=== PATIENT | male | born 1995 | race Caucasian/White ===

== ENCOUNTER 2020-09-26 12:28 | Emergency (ER) | payer SELFPAY ==
--- NOTE | 2020-09-26 13:37 | CR ---
INDICATION: Pain, fell, twisted leg. Technique: Two-views. FINDINGS: Nondisplaced linear oblique fracture of the mid fibula. No other fracture/acute bony abnormality. Operative changes are present about the knee suggesting ACL repair. Osteophyte extends off inferior patella. Dictated by Dino Tyson MD @ Sep 26 2020 1:35PM Signed by Dr. Dino Tyson @ Sep 26 2020 1:37PM
--- NOTE | 2020-09-26 13:39 | CR ---
INDICATION: Fell, twisted leg. TECHNIQUE: Three views. FINDINGS: Linear/oblique fracture of the mid fibula is present, but present on the edge of these ankle radiographs, it is better seen on the right tib-fib radiographs. No acute fracture of the distal fibula/tibia. Ankle mortise well maintained. Bone density and cortical contour in bony alignment are normal. Dictated by Dino Tyson MD @ Sep 26 2020 1:37PM Signed by Dr. Dino Tyson @ Sep 26 2020 1:38PM
--- NOTE | 2020-09-26 13:42 | CR ---
INDICATION: Fell, twisted leg TECHNIQUE: Two views COMPARISON: None FINDINGS: Bones: Alignment is normal. No fractures or bone lesions. Joint spaces: Unremarkable. Soft tissues: Unremarkable. IMPRESSION: Negative. Dictated by Dino Tyson MD @ Sep 26 2020 1:40PM Signed by Dr. Dino Tyson @ Sep 26 2020 1:41PM
--- NOTE | 2020-09-26 14:02 | EDM.PDOC ---
ED HPI GENERAL MEDICAL PROBLEM - General Chief Complaint: Lower Extremity Injury/Pain Stated Complaint: POSSIBLE BROKEN R LEG Time Seen by Provider: 09/26/20 12:30 Source of Information: Reports: Patient History Limitations: Reports: No Limitations - History of Present Illness INITIAL COMMENTS - FREE TEXT/NARRATIVE: HISTORY AND PHYSICAL: History of present illness: Patient is a 24-year-old male who presents to the ED today with concern of right leg injury that occurred a few hours prior to arrival to the ED. Patient states he was at work and he was screwing with a big wrench. Patient states he slipped and landed "funny "on his right leg. Patient states since then he has been able to bear some weight on his right leg but has not been able to put his full weight on it. Patient states that he did not hit his head or lose consciousness. Patient denies any other associated symptoms. Patient denies fever, chills, chest pain, shortness of breath, or cough. Denies headache, neck stiff ness, change in vision, syncope, or near syncope. Denies nausea, vomiting, abdominal pain, diarrhea, constipation, or dysuria. Has not noted any blood in urine or stool. Patient has been eating and drinking appropriately. Review of systems: As per history of present illness and below otherwise all systems reviewed and negative. Past medical history: As per history of present illness and as reviewed below otherwise noncontributory. Surgical history: As per history of present illness and as reviewed below otherwise noncontributory. Social history: See social history for further information Family history: As per history of present illness and as reviewed below otherwise noncontributory. Physical exam: General: Patient is alert, oriented, and in no acute distress. Patient sitting comfortably on exam table. HEENT: Atraumatic, normocephalic, pupils equal and reactive bilaterally, negative for conjunctival pallor or scleral icterus, mucous membranes moist, TMs normal bilaterally, throat clear, neck supple, nontender, trachea midline. No drooling or trismus noted. No meningeal signs. No hot potato voice noted. Lungs: Clear to auscultation, breath sounds equal bilaterally, chest nontender. Heart: S1S2, regular rate and rhythm without overt murmur Abdomen: Soft, nondistended, nontender. Negative for masses or hepatosplenomegaly. Negative for costovertebral tenderness. Pelvis: Stable nontender. Genitourinary: Deferred. Rectal: Deferred. Skin: Intact, warm, dry. No lesions or rashes noted. Extremities: Patient does have full range of motion of the right knee and ankle but does have pain with range of motion of the right ankle. Patient does have some mild edema of the mid tib/fib area with pain to palpation of this area.dorsalis pedis posterior tibial pulses are grossly intact of the right lower extremity with capillary refill less than 2 seconds. Patient has intact sensation to light and deep touch of the complete lower extremity. Otherwise, atraumatic, negative for cords or calf pain. Neurovascular unremarkable. Neuro: Awake, alert, oriented. Cranial nerves II through XII unremarkable. Cerebellum unremarkable. Motor and sensory unremarkable throughout. Exam nonfocal. Notes: Discussed importance for follow-up with an orthopedic provider. Signs and symptoms that would prompt return to the ED thoroughly discussed with patient. Voices understanding and is agreeable to plan of care. Denies any further questions or concerns at this time. Diagnostics: Tib/fib/ankle/foot XR Therapeutics: Walking boot and crutches--Right fibular fracture-to use until orthopedic evaluation for fracture stabilization Prescription: None Impression: Right fibular fracture, closed, non-displaced Plan: 1. Rest, ice, elevate the affected extremity. You can apply ice 15 minutes on, 15 minutes off. Use boot and crutches until orthopedic follow up. 2. Tylenol and/or Ibuprofen as directed for pain management or discomfort. 3. Follow up with the Orthopedic provider as discussed. Return to the ED as needed and as discussed. Definitive disposition and diagnosis as appropriate pending reevaluation and review of above. Right lower extremity Pain Score (Numeric/FACES): 7 - Related Data Allergies Allergy/AdvReac Type Severity Reaction Status Date / Time cat dander Allergy Cannot Verified 09/26/20 12:42 Remember Home Meds: Home Meds . [No Known Home Meds] 09/26/20 [History] Past Medical History - Infectious Disease History Infectious Disease History: Reports: None Social & Family History - Family History Family Medical History: No Pertinent Family History - Tobacco Use Tobacco Use Status *Q: Never Tobacco User - Recreational Drug Use Recreational Drug Use: No Review of Systems - Review of Systems Review Of Systems: Comprehensive ROS is negative, except as noted in HPI. ED EXAM, GENERAL - Physical Exam Exam: See Below (see dictation) Course - Vital Signs Last Recorded V/S: Last Vital Signs Temp 97.6 F 09/26/20 12:42 Pulse 90 09/26/20 12:42 Resp 18 09/26/20 12:42 BP 154/85 H 09/26/20 12:42 Pulse Ox 98 09/26/20 12:42 - Orders/Labs/Meds Orders: Active Orders 24 hr Category Date Time Status DME for Discharge [COMM] Stat Oth 09/26/20 13:59 Ordered Departure - Departure Time of Disposition: 14:00 Disposition: Home, Self-Care 01 Clinical Impression: Fibula fracture Qualifiers: Encounter type: initial encounter Fibula location: shaft Fracture type: closed Fracture morphology: comminuted Fracture alignment: nondisplaced Laterality: right Qualified Code(s): S82.454A - Nondisplaced comminuted fracture of shaft of right fibula, initial encounter for closed fracture - Discharge Information Instructions: Tibial and Fibular Fractures Referrals: PCP,None [Primary Care Provider] - Forms: ED Department Discharge Additional Instructions: The following information is given to patients seen in the emergency department who are being discharged to home. This information is to outline your options for follow-up care. We provide all patients seen in our emergency department with a follow-up referral. The need for follow-up, as well as the timing and circumstances, are variable depending upon the specifics of your emergency department visit. If you don't have a primary care physician on staff, we will provide you with a referral. We always advise you to contact your personal physician following an emergency department visit to inform them of the circumstance of the visit and for follow-up with them and/or the need for any referrals to a consulting specialist. The emergency department will also refer you to a specialist when appropriate. This referral assures that you have the opportunity for follow-up care with a specialist. All of these measure are taken in an effort to provide you with optimal care, which includes your follow-up. Under all circumstances we always encourage you to contact your private physician who remains a resource for coordinating your care. When calling for follow-up care, please make the office aware that this follow-up is from your recent emergency room visit. If for any reason you are refused follow-up, please contact the [facility] Emergency Department at and asked to speak to the emergency department charge nurse. [facility] [address] [place] [address] [facility] [address] [place] [id number] [facility] Special[facility] - Orthopedic Clinic Professional Building [address] [facility], [address] [place] [address] 1. Rest, ice, elevate the affected extremity. You can apply ice 15 minutes on, 15 minutes off. Use boot and crutches until orthopedic follow up. 2. Tylenol and/or Ibuprofen as directed for pain management or discomfort. 3. Follow up with the Orthopedic provider as discussed. Return to the ED as needed and as discussed. Sepsis Event Note (ED) - Evaluation Sepsis Screening Result: No Definite Risk - Focused Exam Vital Signs: Vital Signs Temp Pulse Resp BP Pulse Ox 09/26/20 12:42 97.6 F 90 18 154/85 H 98 - My Orders Last 24 Hours: My Active Orders 09/26/20 13:59 DME for Discharge [COMM] Stat - Assessment/Plan Last 24 Hours: My Active Orders 09/26/20 13:59 DME for Discharge [COMM] Stat
== END 2020-09-26 14:40 | disposition home or self-care (01) ==
LOC: MW.ED 12:28
DX: S82.454A Nondisplaced comminuted fracture of shaft of right fibula, initial encounter for closed fracture (principal); Z91.048 Other nonmedicinal substance allergy status; W20.8XXA Other cause of strike by thrown, projected or falling object, initial encounter; Y99.0 Civilian activity done for income or pay
CPT/HCPCS: 73590-26-RT; 73590-RT; 73610-26-RT; 73610-RT; 73620-26-RT; 73620-RT; 99283; 99283-25